=== PATIENT | female | born 1990 | race Caucasian/White ===

== ENCOUNTER 2018-09-21 14:24 | Emergency (ER) | payer MEDICAID ==
[~2018-09-21] VITALS: Ht 167.6 cm; Wt 96.6 kg
[~2018-09-21 14:24] MED LIST: AMOXICILLIN500 M1 PO; BENADRYL25 MG PO; COMPAZINE10 MG PO; HYDROCODONE-AP1 EAC6 PO; TYLENOL325 MG PO; ZOFRAN4 MG PO
[2018-09-21] MEDS ORDERED: BIRTH CONTROL (14:33)
[2018-09-21 15:08] LABS: ABSOLUTE BASOPHILS 0.1 thou/uL (0.0-0.2); ABSOLUTE EOSINOPHILS 0.1 thou/uL (0.0-0.7); ABSOLUTE LYMPHOCYTES 1.3 thou/uL (0.8-5.3); ABSOLUTE MONOCYTES 0.5 thou/uL (0.0-1.2); ABSOLUTE NEUTROPHILS 8.4 thou/uL (1.6-8.1); BASOPHILS 0.6 %; EOSINOPHILS 1.2 %; HEMATOCRIT 40.1 % (37.0-47.0); HEMOGLOBIN 13.6 gm/dL (12.0-15.0); LYMPHOCYTES 12.8 %; MCH 29.5 pg (26.0-34.0); MCHC 33.8 g/dL (28.0-37.0); MCV 87.5 fL (80.0-100.0); MONOCYTES 4.9 %; MPV 12.2 fl. (7.2-11.1); NUCLEATED RBCS 0 /100WBC; PLATELET COUNT* 136 thou/uL (150-400); POLYS 80.5 %; RBC 4.59 mil/uL (4.20-5.00); RDW-CV 13.1 % (10.5-14.5); WBC 10.4 thou/uL (4.0-11.0)
[2018-09-21 15:24] LABS: CALCIUM 8.8 mg/dL (8.5-10.1); CREATININE 0.7 mg/dL (0.6-1.3); POTASSIUM 3.7 mmol/L (3.5-5.1)
[2018-09-21 15:29] LABS: ALBUMIN 3.5 g/dL (3.4-5.0); TOTAL BILIRUBIN 0.4 mg/dL (<0.1-1.0); TOTAL PROTEIN 7.5 g/dL (6.4-8.2)
[2018-09-21] MEDS ORDERED: CLEOCIN HCL150 MG PO (16:23)
[2018-09-21] MEDS ORDERED: NABUMETONE 750750 M1 PO (16:23)
[2018-09-21] MEDS ORDERED: NORCO 5-325 TA1 EACH PO (16:34)
[2018-09-21 16:50] VITALS: BP 126/80
== END 2018-09-21 16:51 | disposition home or self-care (01) ==
LOC: M.ERS 14:24
PROVIDERS: Nurse Practitioner Family
DX: K04.7 Periapical abscess without sinus (principal); R22.0 Localized swelling, mass and lump, head; Z98.890 Other specified postprocedural states

== ENCOUNTER 2021-02-15 18:38 | Emergency (ER) | payer OTHER, MEDICAID ==
[~2021-02-15] VITALS: Ht 167.6 cm; Wt 102.1 kg
[~2021-02-15 18:38] MED LIST changes: +BIRTH CONTROL; +CLEOCIN HCL150 MG PO; +NABUMETONE 750750 M1 PO; +NORCO 5-325 TA1 EACH PO
[2021-02-15 20:00] VITALS: BP 132/74
== END 2021-02-15 20:00 | disposition home or self-care (01) ==
LOC: M.ERS 18:38
DX: O26.891 Other specified pregnancy related conditions, first trimester (principal); J02.9 Acute pharyngitis, unspecified; H92.02 Otalgia, left ear; Z98.890 Other specified postprocedural states; Z3A.10 10 weeks gestation of pregnancy